=== PATIENT | female | born 1955 ===

== ENCOUNTER 2020-01-06 05:58 | Day surgery (SDC) | payer OTHER | END 2020-01-06 17:55 | disposition home or self-care (01) | LOC: CIR.AMB 05:58 | PROVIDERS: ATTEND Obstetrics & Gynecology | DX: D25.0 Submucous leiomyoma of uterus (principal); N84.0 Polyp of corpus uteri; Z20.828 Contact with and (suspected) exposure to other viral communicable diseases ==

== ENCOUNTER 2020-05-11 15:52 | Emergency (ER) | payer OTHER ==
[~2020-05-11] VITALS: Ht 157.5 cm; Wt 54.4 kg
== END 2020-05-11 20:25 | disposition home or self-care (01) ==
LOC: ER 15:52
DX: L03.012 Cellulitis of left finger (principal); L03.114 Cellulitis of left upper limb

== ENCOUNTER 2020-05-15 14:33 | Inpatient (IN) | payer OTHER ==
[~2020-05-15] VITALS: Ht 157.5 cm; Wt 54.4 kg
== END 2020-05-21 12:32 | disposition home or self-care (01) | DRG 558 ==
LOC: ER 14:33 → MEDJ 22:35 → SEC-K 22:35 → MEDJ 05-16 01:49
PROVIDERS: Orthopaedic Surgery Hand Surgery; ADMIT Internal Medicine; ATTEND Internal Medicine
PROC: BP3DY0Z Magnetic Resonance Imaging (MRI) of Left Hand/Finger Joint using Other Contrast, Unenhanced and Enhanced (ICD-10-PCS; 2020-05-17)
PROC: 0RBX0ZX Excision of Left Finger Phalangeal Joint, Open Approach, Diagnostic (ICD-10-PCS; principal; 2020-05-18 16:00)
DX: M65.842 Other synovitis and tenosynovitis, left hand (principal); M00.9 Pyogenic arthritis, unspecified; L03.012 Cellulitis of left finger; Z20.822 Contact with and (suspected) exposure to COVID-19

== ENCOUNTER 2022-08-22 10:22 | Day surgery (SDC) | payer OTHER ==
[~2022-08-22] VITALS: Ht 157.5 cm; Wt 52.2 kg
[2022-08-22] MEDS ORDERED: NAPR500T14 PO (12:35)
[2022-08-22] MEDS ORDERED: MORGIDOX100 MG PO (12:35)
== END 2022-08-22 18:55 | disposition home or self-care (01) ==
LOC: CIR.AMB 10:22
PROVIDERS: ATTEND Obstetrics & Gynecology
DX: D26.1 Other benign neoplasm of corpus uteri (principal); N84.0 Polyp of corpus uteri; N88.2 Stricture and stenosis of cervix uteri; N95.0 Postmenopausal bleeding; D25.0 Submucous leiomyoma of uterus; Z20.822 Contact with and (suspected) exposure to COVID-19; I10 Essential (primary) hypertension